=== PATIENT | female | born 1960 | race Caucasian/White ===

== ENCOUNTER 2021-06-20 09:51 | Day surgery (SDC) | payer OTHER, SELFPAY ==
[2021-06-17 12:36] LABS: BILIRUBIN,URINE NEGATIVE (NEGATIVE); CLARITY/URINE CLEAR (CLEAR); COLOR,URINE YELLOW (YELLOW); GLUCOSE,URINE NEGATIVE (NEGATIVE); KETONES,URINE NEGATIVE (NEGATIVE); LEUKOCYTE ESTERASE ,URINE NEGATIVE (NEGATIVE); NITRITE, URINE NEGATIVE (NEGATIVE); PH,URINE 5.5 (5.0-8.0); PROTEIN URINE NEGATIVE (NEGATIVE); UROBILINOGEN,URINE 0.2 (0.2-1.0)
[2021-06-17 12:38] LABS: BLOOD, URINE TRACE (NEGATIVE)
[2021-06-17 12:42] LABS: BASOPHILS # (AUTO) 0.1 K/uL (0.0-0.2); BASOPHILS % (AUTO) 0.8 % (0.0-2.0); EOSINOPHILS # (AUTO) 0.3 K/uL (0.0-0.4); EOSINOPHILS % (AUTO) 4.1 % (0.0-4.0); HEMATOCRIT 38.1 % (36-48); LYMPHOCYTES # (AUTO) 2.3 K/uL (1.0-5.5); LYMPHOCYTES % (AUTO) 35.6 % (20.5-51.5); MEAN CORPUSCULAR HEMOGLOBIN 30 pg (27-31); MEAN CORPUSCULAR HGB CONC 34 % (32-36); MEAN CORPUSCULAR VOLUME 88 fL (79.0-98.0); MONOCYTES # (AUTO) 0.3 K/uL (0.0-1.0); MONOCYTES % (AUTO) 4.4 % (1.7-9.3); NEUTROPHILS # (AUTO) 3.6 K/uL (1.8-7.7); NEUTROPHILS % (AUTO) 55.1 % (40.0-70.0); PLATELET COUNT (AUTO) 244 K/uL (130-430); RED BLOOD CELL COUNT(AUTO) 4.31 MIL/uL (4.2-6.2); RED CELL DISTRIBUTION WIDTH 14.2 % (9.0-15.0); WHITE BLOOD COUNT (AUTO) 6.5 K/uL (4.8-10.8)
[2021-06-17 12:53] LABS: CALCIUM 8.1 mg/dL (8.4-11.0); CREATININE 0.64 mg/dL (0.55-1.30); POTASSIUM 4.5 mmol/L (3.5-5.1)
[2021-06-17 13:02] LABS: BACTERIA,URINE None Seen /HPF (None Seen); WBC,URINE NONE SEEN /HPF (0-3)
[2021-06-17 13:11] LABS: INR 0.9 (0.8-1.2); PROTHROMBIN TIME 9.9 SECS (9.5-12.5)
[~2021-06-20] VITALS: Ht 152.4 cm; Wt 53.5 kg
[2021-06-20] MEDS ORDERED: NS IRRIG SOLN 1000 ML IR ONE (12:09)
[2021-06-20] MEDS ORDERED: fentaNYL CITRATE 250 MCG/5 ML AMP ONE (12:09)
[2021-06-20] MEDS ORDERED: ROCURONIUM BROMIDE 10 MG/ML (ZEMURON) ONE (12:09)
[2021-06-20] MEDS ORDERED: LR 1,000 ML IV.SOLN IV ONE (12:09)
[2021-06-20] MEDS ORDERED: KETOROLAC TROMETHAMINE 30 MG VIAL ONE (12:09)
[2021-06-20] MEDS ORDERED: SUCCINYLCHOLINE CHLORIDE 20 MG/ML(QUELICIN) ONE (12:09)
[2021-06-20] MEDS ORDERED: SEVOFLURANE 15 MIN GAS INH ONE (12:09)
[2021-06-20] MEDS ORDERED: PROPOFOL 200MG/ 20ML VIAL (DIPRIVAN) IV ONE (12:09)
[2021-06-20] MEDS ORDERED: ONDANSETRON HCL 4 MG/2 ML VIAL ONE (12:09)
[2021-06-20] MEDS ORDERED: ceFAZolin SODIUM 1 GM VIAL ONE (12:09)
[2021-06-20] MEDS ORDERED: BUPIVACAINE /EPINEPHRINE/PF 0.25% 30 ML VIAL INJ ONE (12:09)
[2021-06-20] MEDS ORDERED: KETOROLAC TROMETHAMINE 30 MG VIAL IVP PRN (13:15)
[2021-06-20] MEDS ORDERED: ONDANSETRON HCL 4 MG/2 ML VIAL IVP PRN (13:15)
[2021-06-20] MEDS ORDERED: IBUPROFEN 600 MG TABLET PO ONE (13:15)
[2021-06-20] MEDS ORDERED: HYDROmorphone 1 MG/ML INJ. CARTRIDGE ONE ×2 (13:35→15:02)
[2021-06-20] MEDS: HYDROmorphone 1 MG/ML INJ. CARTRIDGE IVP PRN ×2 (13:38→15:15)
[2021-06-20] MEDS ORDERED: ACETAMINOPHEN I.V. 1000 MG 100 ML IV ONE ×3 (13:57→14:00)
[2021-06-20 15:59] VITALS: BP_SYST 130
== END 2021-06-20 15:50 | disposition home or self-care (01) ==
LOC: SDS 09:51 → SMU 09:51 → SDS 15:50
PROVIDERS: ATTEND Orthopaedic Surgery
DX: M75.101 Unspecified rotator cuff tear or rupture of right shoulder, not specified as traumatic (principal); M75.41 Impingement syndrome of right shoulder; Z79.01 Long term (current) use of anticoagulants; M75.51 Bursitis of right shoulder; M79.7 Fibromyalgia; Z79.899 Other long term (current) drug therapy; Z20.822 Contact with and (suspected) exposure to COVID-19
CPT/HCPCS: 23120; 23130; 23412; 36415 ×2; 71046; 80048; 81000; 85025; 85610; 85730; 87426; A4565; C1713; J0131; J0330; J0690; J1170; J1885; J2405; J2704; J3010; J3490; J7120; U0003